=== PATIENT | female | born 1970 | race Hispanic/Latino ===

== ENCOUNTER → 2018-08-08 15:11 | Outpatient (CLI) | payer OTHER, SELFPAY ==
--- NOTE | 2018-08-08 | DI.MRI.S_ITS ---
PROCEDURE: MR ANKLE LT WO CON INDICATIONS: PAIN UNSPECIFIED ANKLE AND JOINTS TECHNIQUE: Noncontrast sagittal T1 spin echo and T2 fast spin echo with fat saturation, axial proton density fast spin echo and T2 fast spin echo with fat saturation, coronal T1 spin echo and T2 fast spin echo with fat saturation through the ankle/hindfoot. COMPARISON: None. FINDINGS: Image quality: Excellent. Bones and joints: No bone marrow contusions or fractures. No hindfoot coalitions. No osteochondral injuries of the talar dome. No pathologic joint effusions. Medial structures: The posterior tibialis, flexor digitorum longus, and flexor hallucis longus tendons are intact. The posterior tibial neurovascular bundle appears normal within the tarsal tunnel, without extrinsic mass effect. The deep layer (anterior and posterior tibiotalar ligaments) and superficial layer (tibionavicular, tibiospring, and tibiocalcaneal ligaments) of the deltoid ligament appear normal. The spring ligament components (superomedial calcaneonavicular, medioplantar oblique calcaneonavicular, and inferoplantar longitudinal ligaments) are intact. Lateral structures: The anterior talofibular, calcaneofibular, and posterior talofibular ligaments appear intact. More superiorly, the anterior and posterior tibiofibular ligaments appear intact, as is the intermalleolar ligament. The tibiofibular syndesmosis is normal in width at 2 mm or less. There is thickening of hernias longus and brevis tendon with moderate amount of fluid distending the tendon sheath suggestive of tenosynovitis. There is suggestion of full-thickness rupture involving distal peroneus brevis tendon at its insertion with proximal retraction of torn tendon fibers to the level of the subtalar joint. Adjacent bony peroneal tubercle and retrotrochlear prominence are normal in size. The sinus tarsi demonstrates normal fatty signal, without edema, fibrosis, or cyst formation. Visualized sinus tarsi components (cervical ligament, interosseous talocalcaneal ligament, roots of the inferior extensor retinaculum) appear normal. The calcaneonavicular and calcaneocuboid components of the bifurcate ligament appear intact. The dorsal calcaneocuboid ligament appears intact. Anterior structures: The tibialis anterior, extensor hallucis longus, and extensor digitorum longus tendons appear intact. The dorsal talonavicular ligament appears intact. Posterior and plantar structures: Achilles tendon is intact. Medial and lateral bands of the plantar fascia are of normal thickness. No abductor digiti quinti muscle atrophy to suggest Abbott neuropathy. IMPRESSION: #1. Tenosynovitis involving the peroneus tendons with suggestion of full-thickness rupture involving distal peroneus brevis tendon at its distal insertion with proximal retraction of torn tendon fibers to the level of subtalar joint. #2. No other ankle tendon or ligament pathology. #3. No marrow edema. No fracture or dislocation. Dictated by: Julian Baumann M.D. on 08/08/2018 at 16:49 Approved by: Julian Baumann M.D. on 08/08/2018 at 17:43
== END ==
PROVIDERS: Visit Provider Family Medicine
DX: M25.572 Pain in left ankle and joints of left foot (principal); M65.862 Other synovitis and tenosynovitis, left lower leg
CPT/HCPCS: 73721

== ENCOUNTER 2022-12-14 10:32 | Emergency (ER) | payer OTHER, SELFPAY ==
[2022-12-14] VITALS (10 sets, daily range): BP systolic 136–188; BP diastolic 78–97; PULSE 57–82; RESP 12–16; TEMP 36.4; O2SAT 95–98; BMI 32.3
[2022-12-14 11:04] LABS: Add Manual Diff / Slide Review NO; Basophils Absolute Auto 100 /uL (0-100); Basophils Percent Auto 0.9 % (0-2); Eosinophils Absolute Auto 600 /uL (0-450); Eosinophils Percent Auto 8.7 % (2-4); Hematocrit 42.1 % (36-46); Hemoglobin 14.2 g/dL (12.0-16.0); Lymphocytes Absolute Auto 2500 /uL (1100-4500); Lymphocytes Percent Auto 34.1 % (25-40); Mean Corpuscular HGB Conc 33.7 % (30-36); Mean Corpuscular Hemoglobin 28.9 PG (26-34); Mean Corpuscular Volume 85.8 fL (80-100); Monocytes Absolute Auto 500 /uL (0-900); Monocytes Percent Auto 6.8 % (3-14); Neutrophils Absolute Auto 3600 /uL (1500-7000); Neutrophils Percent Auto 49.5 % (50-75); Platelet Count 279 X10^3/uL (150-400); Red Cell Distribution Width 13.1 % (11.6-14.8); White Blood Cell Count 7.2 X10^3/uL (4.5-11.0)
[2022-12-14 11:10] LABS: Ictotest Urine Negative (Negative)
[2022-12-14 11:11] LABS: Bacteria Urine Moderate (10-30); RBC Urine 5-10/HPF (0-5/HPF); WBC Urine 0-1/HPF (0-5/HPF)
[2022-12-14 11:12] LABS: Culture Indicated Urine Specimen Cultured; Squamous Epithelial Cell Urine 1-5 /HPF (0-5/HPF)
[2022-12-14 11:16] LABS: Alanine Aminotransferase 36 IU/L (<35); Albumin 4.4 g/dL (3.5-5.0); Albumin Globulin Ratio 1.3 (1.0-2.8); Alkaline Phosphatase 84 U/L (38-126); Aspartate Aminotransferase 32 IU/L (14-36); BUN Creatinine Ratio 10.8 (6-22); Bilirubin Total 0.4 mg/dL (0.2-1.3); Blood Urea Nitrogen 8 mg/dL (7-17); Calcium 9.2 mg/dL (8.4-10.2); Carbon Dioxide 27 mmol/L (22-32); Chloride 102 mmol/L (98-107); Estimated Glomerular Filt Rate > 60 mL/min (>60); Globulin 3.4 g/dL (1.7-4.1); Glucose 151 mg/dL (70-100); HEMOLYSIS < 15 (0-50); Lipase 73 U/L (23-300); Potassium 3.6 mmol/L (3.4-5.1); Sodium 138 mmol/L (137-145); Total Protein 7.8 g/dL (6.3-8.2)
[2022-12-14] MEDS: ONDANSETRON 4 MG/2 ML INJ IV (11:23)
[2022-12-14 11:32] LABS: Appearance Urine UA CLEAR; Bilirubin Urine UA NEGATIVE (NEGATIVE); Color Urine UA YELLOW; Glucose Urine UA NEGATIVE (Negative); Ketones Urine UA TRACE (NEGATIVE); Leukocyte Esterase Urine UA NEGATIVE (NEGATIVE); Nitrite Urine UA NEGATIVE (Negative); Occult Blood Urine UA NEGATIVE (Negative); Protein Urine UA TRACE (Negative); Specific Gravity Urine UA 1.015 (1.000-1.035)
[2022-12-14 11:34] LABS: pH Urine UA 6.5 (4.5-8.0)
--- NOTE | 2022-12-14 11:34 | ED.ABDPAIN ---
HPI - Abdominal Pain General Chief Complaint: Abdominal Pain Stated Complaint: back pain t-4 Time Seen by Provider: 12/14/22 11:21 Source: patient Mode of arrival: Ambulatory History of Present Illness HPI narrative: Patient healthy 52-year-old female presents today with some right-sided back pain and abdominal pain. Feeling nauseated at times. Yesterday she reports that she drank multiple sodas in order to try and burp. No changes in bowel habits. She is been having some chest burning but no real chest pain. No fever or chills. No painful or frequent urination. Not feeling quite right. Related Data Allergies Allergy/AdvReac Type Severity Reaction Status Date / Time No Known Drug Allergies Allergy Verified 12/14/22 10:36 Review of Systems Review of Systems ROS Unobtainable: All systems reviewed & are unremarkable except as noted in HPI and below Patient History Social History Smoking Status: Unknown if ever smoked Smoking Status: Unknown if ever smoked alcohol intake frequency: holidays/special occasions only Substance Use Type: does not use Exam Initial Vital Signs Initial Vital Signs: Vital Signs Temperature 97.5 F L 12/14/22 10:33 Pulse Rate 71 12/14/22 10:33 Respiratory Rate 15 12/14/22 10:33 Blood Pressure 188/91 H 12/14/22 10:33 Pulse Oximetry 98 12/14/22 10:33 Oxygen Delivery Method Room Air 12/14/22 10:33 GENERAL: Alert pleasant well-appearing 52-year-old female and in no acute distress. HEENT: Head atraumatic,EOMI, pupils reactive, face symmetric, moist mucous membranes CARDIOVASCULAR: Regular rate and rhythm without murmurs, rubs or gallops. RESPIRATORY: Breath sounds equal bilaterally, no wheezes rales or rhonchi. ABDOMEN: Soft, nontender. Negative Larios sign Normoactive bowel sounds all 4 quadrants. No guarding or rebound. BACK: Tender right thoracic area reproducible to palpation paraspinal area : No CVA tenderness EXTREMITIES: Normal range of motion, no clubbing or edema. Neurovascularly intact NEUROLOGICAL: Alert and oriented x4.Normal gait and speech. SKIN: Warm, dry, no laceration, no petechiae, no rashes or lesions. Course Orders Ordered: ED Orders 12/14/22 10:41 Ictotest Urine Stat Urine Culture Stat Urine Microscopic Stat 12/14/22 10:50 Complete Blood Count AUTO DIFF Stat Comprehensive Metabolic Panel Stat Lipase Stat Troponin & CK Cardiac Panel Stat 12/14/22 10:54 EKG-12 Lead Stat 12/14/22 11:07 Test Urine Stat Urinalysis and Microscopic Stat 12/14/22 11:47 US abdomen limited Stat Discontinued Medications Ketorolac Tromethamine (Ketorolac 30 Mg/Ml Vial) 15 mg IV NOW ONE Stop: 12/14/22 11:48 Last Admin: 12/14/22 11:58 Dose: 15 mg Documented By: FREDDY Ondansetron HCl (Ondansetron 4 Mg/2 Ml Inj) 4 mg IV NOW PRN PRN Reason: Nausea And Vomiting Last Admin: 12/14/22 11:23 Dose: 4 mg Documented By: FREDDY Vital Signs Vital signs: Vital Signs - 8 hr 12/14/22 11:30 12/14/22 11:32 12/14/22 11:32 Pulse Rate 67 64 Respiratory Rate 12 16 Blood Pressure 153/97 H Pulse Oximetry 98 98 12/14/22 12:00 12/14/22 12:00 12/14/22 12:30 Pulse Rate 65 Respiratory Rate 16 Blood Pressure 143/83 H 150/81 H Pulse Oximetry 98 12/14/22 12:30 12/14/22 13:00 12/14/22 13:30 Pulse Rate 60 57 L Respiratory Rate 14 15 Blood Pressure 136/78 Pulse Oximetry 96 96 12/14/22 13:30 Pulse Rate 58 L Respiratory Rate 14 Blood Pressure Pulse Oximetry 95 MDM - Abdominal Pain Lab Data 12/14/22 10:50 12/14/22 10:50 Labs: Lab Results 12/14/22 12/14/22 12/14/22 Range/Units 10:41 10:50 10:50 WBC 7.2 (4.5-11.0) X10^3/uL RBC 4.90 (4.0-5.2) X10^6/uL Hgb 14.2 (12.0-16.0) g/dL Hct 42.1 (36-46) % MCV 85.8 (80-100) fL MCH 28.9 (26-34) PG MCHC 33.7 (30-36) % RDW 13.1 (11.6-14.8) % Plt Count 279 (150-400) X10^3/uL Neut % (Auto) 49.5 L (50-75) % Lymph % (Auto) 34.1 (25-40) % [place] % (Auto) 6.8 (3-14) % Eos % (Auto) 8.7 H (2-4) % Baso % (Auto) 0.9 (0-2) % Neut # (Auto) 3600 (9531-4313) /uL Lymph # (Auto) 2500 (7271-3716) /uL [place] # (Auto) 500 (0-900) /uL Eos # (Auto) 600 H (0-450) /uL Baso # (Auto) 100 (0-100) /uL Sodium 138 (137-145) mmol/L Potassium 3.6 (3.4-5.1) mmol/L Chloride 102 (98-107) mmol/L Carbon Dioxide 27 (22-32) mmol/L BUN 8 (7-17) mg/dL Creatinine 0.74 (0.52-1.04) mg/dL Estimated GFR > 60 (>60) mL/min BUN/Creatinine Ratio 10.8 (6-22) Glucose 151 H (70-100) mg/dL Calcium 9.2 (8.4-10.2) mg/dL Total Bilirubin 0.4 (0.2-1.3) mg/dL AST 32 (14-36) IU/L ALT 36 H (<35) IU/L Alkaline Phosphatase 84 (38-126) U/L Total Creatine Kinase (30-135) U/L Troponin I (0.01-0.034) ng/mL Total Protein 7.8 (6.3-8.2) g/dL Albumin 4.4 (3.5-5.0) g/dL Globulin 3.4 (1.7-4.1) g/dL Albumin/Globulin Ratio 1.3 (1.0-2.8) Lipase 73 (23-300) U/L Urine Color Urine Appearance Urine pH (4.5-8.0) Ur Specific [place] (1.000-1.035) Urine Protein (Negative) Urine Glucose (UA) (Negative) g/dL Urine Ketones (NEGATIVE) Urine Occult Blood (Negative) Urine Nitrate (Negative) Urine Bilirubin (NEGATIVE) Ur Bilirubin Confirm Negative (Negative) Urine Urobilinogen (0.2) E.U./dL Ur Leukocyte Esterase (NEGATIVE) Urine RBC 5-10/hpf H (0-5/HPF) Urine WBC 0-1/hpf (0-5/HPF) Ur Squamous Epith Cells 1-5 /hpf (0-5/HPF) Urine Bacteria Moderate (10-30) H (None) Ur Culture Indicated? Specimen cultured Micro UA Comment Urine Test (Negative) 12/14/22 12/14/22 12/14/22 Range/Units 10:50 11:07 11:07 WBC (4.5-11.0) X10^3/uL RBC (4.0-5.2) X10^6/uL Hgb (12.0-16.0) g/dL Hct (36-46) % MCV (80-100) fL MCH (26-34) PG MCHC (30-36) % RDW (11.6-14.8) % Plt Count (150-400) X10^3/uL Neut % (Auto) (50-75) % Lymph % (Auto) (25-40) % [place] % (Auto) (3-14) % Eos % (Auto) (2-4) % Baso % (Auto) (0-2) % Neut # (Auto) (2626-0318) /uL Lymph # (Auto) (5969-8167) /uL [place] # (Auto) (0-900) /uL Eos # (Auto) (0-450) /uL Baso # (Auto) (0-100) /uL Sodium (137-145) mmol/L Potassium (3.4-5.1) mmol/L Chloride (98-107) mmol/L Carbon Dioxide (22-32) mmol/L BUN (7-17) mg/dL Creatinine (0.52-1.04) mg/dL Estimated GFR (>60) mL/min BUN/Creatinine Ratio (6-22) Glucose (70-100) mg/dL Calcium (8.4-10.2) mg/dL Total Bilirubin (0.2-1.3) mg/dL AST (14-36) IU/L ALT (<35) IU/L Alkaline Phosphatase (38-126) U/L Total Creatine Kinase 51 (30-135) U/L Troponin I < 0.012 (0.01-0.034) ng/mL Total Protein (6.3-8.2) g/dL Albumin (3.5-5.0) g/dL Globulin (1.7-4.1) g/dL Albumin/Globulin Ratio (1.0-2.8) Lipase (23-300) U/L Urine Color Yellow Urine Appearance Clear Urine pH 6.5 (4.5-8.0) Ur Specific [place] 1.015 (1.000-1.035) Urine Protein Trace H (Negative) Urine Glucose (UA) Negative (Negative) g/dL Urine Ketones Trace H (NEGATIVE) Urine Occult Blood Negative (Negative) Urine Nitrate Negative (Negative) Urine Bilirubin Negative (NEGATIVE) Ur Bilirubin Confirm (Negative) Urine Urobilinogen 1.0 (0.2) E.U./dL Ur Leukocyte Esterase Negative (NEGATIVE) Urine RBC None seen D (0-5/HPF) Urine WBC None seen (0-5/HPF) Ur Squamous Epith Cells None seen (0-5/HPF) Urine Bacteria None seen (None) Ur Culture Indicated? Cult not indicated Micro UA Comment Microscopic normal Urine Test Negative (Negative) Point of care testing: Urine Dip Bedside Urine Glucose Negative Bedside Urine Bilirubin + 1 Bedside Urine Ketone +/- 5 Urine Specific [place] 1.015 Bedside Urine Occult Blood - Negative Bedside Urine pH 6.0 Bedside Urine Protein +/- 15 Bedside Urine Urobilinogen - Negative Bedside Urine Nitrite - Negative Bedside Urine Leukocytes - Negative Esterase Imaging Data US - abdomen: Radiologist's Impression: PROCEDURE: US ABDOMEN LIMITED ? INDICATIONS:? RIGHT UPPER QUADRANT PAIN ? TECHNIQUE:? Real-time focused scanning was performed of the abdomen, with image documentation.? ? COMPARISON:? None. ? FINDINGS:? Diffuse increased echogenicity of the liver is most likely secondary to diffuse hepatic steatosis.? No focal liver masses identified. ? The bladder is contracted.? This results in gallbladder wall prominence, not felt to be significantly thickened.? No stones identified.? No pain on examination. ? No dilated ducts.? Common bile duct measures 3.5 mm. ? Pancreas is not visualized secondary to overlying bowel gas.? ? IMPRESSION:? ? 1. Diffuse hepatic steatosis. ? 2. Otherwise unremarkable right upper quadrant ultrasound. ? ? ECG Data Interpretation: Normal sinus rhythm rate 67 AL interval 90 QRS [address] changes no T-wave inversions MDM Narrative Medical decision making narrative: Patient 52-year-old healthy female presents today with right thoracic pain which is reproducible to palpation. She is having around abdominal pain possibly right upper quadrant pain but really negative Larios sign. Though still concerning for possible gallbladder disease. Bilirubin liver enzymes and lipase are all negative. Ultrasound shows hepatic steatosis. She is having some right thoracic pain cardiac troponin EKG were also done and are negative. Pain is reproducible to palpation and movement I suspect more musculoskeletal. She is feeling better after her Toradol. Other blood work is reassuring. Her abdominal exam is pretty benign I see no need for any further imaging or workup. Discharge Plan Departure Patient Disposition: Home Clinical Impression: Back pain Instructions: DI for Thoracic Back Pain Activity Restrictions/Additional Instructions: *You have been diagnosed with back pain *What to do: At this time no evidence of infection or cause of back pain. Recommend ice he light activity and stretching. *Continue to take medications as directed Motrin 600 mg every 6 hours if needed for lxok-lu-dlhuhzth pain Tylenol 650 mg every 6 hours if needed for ocfh-ro-hetpfiol pain *Follow up with your primary care provider in 2-3 days or call [phone] *Return to ER if you should have increasing pain or any new, worsening or concerning symptoms Stand Alone Forms: Patient Portal/API, Work Release Note
[2022-12-14 11:35] LABS: Pregnancy Test Urine Negative (Negative)
[2022-12-14 11:37] LABS: Bacteria Urine None Seen; Culture Indicated Urine Cult Not Indicated; RBC Urine None Seen (0-5/HPF); Squamous Epithelial Cell Urine None Seen (0-5/HPF); Urine Comments Microscopic Normal; WBC Urine None Seen (0-5/HPF)
--- NOTE | 2022-12-14 11:47 | DI.US.S_ITS ---
PROCEDURE: US ABDOMEN LIMITED INDICATIONS: RIGHT UPPER QUADRANT PAIN TECHNIQUE: Real-time focused scanning was performed of the abdomen, with image documentation. COMPARISON: None. FINDINGS: Diffuse increased echogenicity of the liver is most likely secondary to diffuse hepatic steatosis. No focal liver masses identified. The bladder is contracted. This results in gallbladder wall prominence, not felt to be significantly thickened. No stones identified. No pain on examination. No dilated ducts. Common bile duct measures 3.5 mm. Pancreas is not visualized secondary to overlying bowel gas. IMPRESSION: 1. Diffuse hepatic steatosis. 2. Otherwise unremarkable right upper quadrant ultrasound. Dictated by: Srinath Pinto M.D. on 12/14/2022 at 12:41 Approved by: Srinath Pinto M.D. on 12/14/2022 at 12:42
[2022-12-14] MEDS: KETOROLAC 30 MG/ML VIAL 15 MG IV (11:58)
[2022-12-14 12:06] LABS: Creatine Kinase 51 U/L (30-135)
[2022-12-14 12:19] LABS: Troponin I < 0.012 ng/mL (0.01-0.034)
== END 2022-12-14 13:53 | disposition home or self-care (01) ==
PROVIDERS: Emergency Provider Emergency Medicine
DX: M54.6 Pain in thoracic spine (principal); R07.9 Chest pain, unspecified; R10.11 Right upper quadrant pain
CPT/HCPCS: 36415; 76705; 80053; 81001; 81003; 81015; 81025; 82550; 83690; 84484; 85025; 87086; 87147; 93005; 96374; 96375; 99284; J1885; J2405

== ENCOUNTER 2023-10-24 19:00 | Emergency (ER) | payer OTHER, SELFPAY ==
[2023-10-24 19:10] VITALS: BP 142/90; PULSE 87; RESP 18; TEMP 36.6; O2SAT 98; BMI 33.4
[2023-10-24 20:26] VITALS: BP 157/79; PULSE 79; O2SAT 98
[2023-10-24 20:30] VITALS: BP 152/79; PULSE 83; O2SAT 97
[2023-10-24] MEDS: ONDANSETRON 4 MG/2 ML INJ IV (20:40)
[2023-10-24 20:45] LABS: Add Manual Diff / Slide Review NO; Basophils Absolute Auto 0 /uL (0-100); Basophils Percent Auto 0.1 % (0-2); Eosinophils Absolute Auto 0 /uL (0-450); Eosinophils Percent Auto 0.1 % (2-4); Hematocrit 43.8 % (36-46); Hemoglobin 14.6 g/dL (12.0-16.0); Lymphocytes Absolute Auto 800 /uL (1100-4500); Lymphocytes Percent Auto 8.4 % (25-40); Mean Corpuscular HGB Conc 33.3 % (30-36); Mean Corpuscular Hemoglobin 28.7 PG (26-34); Mean Corpuscular Volume 86.2 fL (80-100); Monocytes Absolute Auto 500 /uL (0-900); Monocytes Percent Auto 5.4 % (3-14); Neutrophils Absolute Auto 7800 /uL (1500-7000); Platelet Count 282 X10^3/uL (150-400); Red Blood Cell Count 5.09 X10^6/uL (4.0-5.2); Red Cell Distribution Width 13.5 % (11.6-14.8); White Blood Cell Count 9.1 X10^3/uL (4.5-11.0)
--- NOTE | 2023-10-24 20:45 | ED.NAVMDI ---
HPI - Nausea/Vomiting/Diarrhea General Chief complaint: Nausea/Vomiting/Diarrhea Stated complaint: diarrhea and vomiting Time Seen by Provider: 10/24/23 20:30 Source: patient Mode of arrival: Ambulatory History of Present Illness HPI Narrative: 53-year-old female with no reported past medical history presents for ?innumerable episodes of nonbloody vomiting and diarrhea since this afternoon. States that she ate half of a burger with her son earlier today, but her son is not sick with similar symptoms. Reports generalized abdominal cramping. Related Data Previous Rx's Medication Instructions Recorded ondansetron 4 mg disintegrating 4 mg PO Q8H PRN nausea and 10/24/23 tablet vomiting #30 tabs Allergies Allergy/AdvReac Type Severity Reaction Status Date / Time No Known Drug Allergies Allergy Verified 10/24/23 19:12 Patient History Social History Smoking Status: Unknown if ever smoked Smoking Status: Unknown if ever smoked alcohol intake frequency: holidays/special occasions only Substance Use Type: does not use Exam Initial Vital Signs Initial Vital Signs: Vital Signs Temperature 97.8 F 10/24/23 19:10 Pulse Rate 87 10/24/23 19:10 Respiratory Rate 18 10/24/23 19:10 Blood Pressure 142/90 H 10/24/23 19:10 Pulse Oximetry 98 10/24/23 19:10 Oxygen Delivery Method Room Air 10/24/23 19:10 Const: Awake, alert, no acute distress, nontoxic appearing Cardiac: regular rate, regular rhythm RESP: unlabored, clear bilaterally, no wheezing GI: Soft, generalized tenderness to deep palpation without rebound or guarding Skin: Warm, Dry, intact, no rashes Neuro: AO x3, CN II-XII grossly intact, moves all extremities Course Orders Ordered: ED Orders 10/24/23 20:35 Complete Blood Count AUTO DIFF Stat Comprehensive Metabolic Panel Stat Lipase Stat Discontinued Medications Sodium Chloride (Normal Saline 0.9%) 1,000 mls @ 1,000 mls/hr IV BOLUS ONE Stop: 10/24/23 21:44 Last Infusion: 10/24/23 22:24 Dose: Infused Documented By: Admin: 10/24/23 21:06 Dose: 1,000 mls/hr Documented By: TEA Ketorolac Tromethamine (Ketorolac 30 Mg/Ml Vial) 15 mg IV NOW ONE Stop: 10/24/23 20:46 Last Admin: 10/24/23 21:06 Dose: 15 mg Documented By: TEA Ondansetron HCl (Ondansetron 4 Mg/2 Ml Inj) 4 mg IV NOW PRN PRN Reason: Nausea And Vomiting Last Admin: 10/24/23 20:40 Dose: 4 mg Documented By: TEA Ondansetron HCl (Ondansetron 4 Mg Odt) 4 mg PO NOW PRN PRN Reason: Nausea And Vomiting Ondansetron HCl (Ondansetron 4 Mg Odt Prepack) 1 bottle MISC DIRECTED ONE Stop: 10/24/23 22:12 Last Admin: 10/24/23 22:23 Dose: 1 bottle Documented By: TEA Vital Signs Vital signs: Vital Signs - 8 hr 10/24/23 19:10 10/24/23 20:26 10/24/23 20:26 Temperature 97.8 F Pulse Rate 87 79 Respiratory Rate 18 Blood Pressure 142/90 H 157/79 H Pulse Oximetry 98 98 Oxygen Delivery Method Room Air 10/24/23 20:30 10/24/23 20:30 10/24/23 21:00 Temperature Pulse Rate 83 72 Respiratory Rate Blood Pressure 152/79 H Pulse Oximetry 97 93 Oxygen Delivery Method 10/24/23 21:00 10/24/23 21:30 10/24/23 21:30 Temperature Pulse Rate 66 Respiratory Rate Blood Pressure 131/72 133/76 Pulse Oximetry 96 Oxygen Delivery Method 10/24/23 22:00 10/24/23 22:00 Temperature Pulse Rate 65 Respiratory Rate Blood Pressure 121/67 Pulse Oximetry 96 Oxygen Delivery Method MDM - Nausea/Vomiting/Diarrhea Differential Diagnosis Differential diagnosis: Likely traveler's diarrhea, food poisoning and gastroenteritis Lab Data 10/24/23 20:35 10/24/23 20:35 Labs: Lab Results 10/24/23 Range/Units 20:35 WBC 9.1 (4.5-11.0) X10^3/uL RBC 5.09 (4.0-5.2) X10^6/uL Hgb 14.6 (12.0-16.0) g/dL Hct 43.8 (36-46) % MCV 86.2 (80-100) fL MCH 28.7 (26-34) PG MCHC 33.3 (30-36) % RDW 13.5 (11.6-14.8) % Plt Count 282 (150-400) X10^3/uL Neut % (Auto) 86.0 H (50-75) % Lymph % (Auto) 8.4 L (25-40) % [place] % (Auto) 5.4 (3-14) % Eos % (Auto) 0.1 L (2-4) % Baso % (Auto) 0.1 (0-2) % Neut # (Auto) 7800 H (5732-0973) /uL Lymph # (Auto) 800 L (2588-6042) /uL [place] # (Auto) 500 (0-900) /uL Eos # (Auto) 0 (0-450) /uL Baso # (Auto) 0 (0-100) /uL Sodium 135 L (137-145) mmol/L Potassium 3.6 (3.4-5.1) mmol/L Chloride 106 (98-107) mmol/L Carbon Dioxide 21 L (22-32) mmol/L BUN 11 (7-17) mg/dL Creatinine 0.68 (0.52-1.04) mg/dL Estimated GFR > 60 (>60) mL/min BUN/Creatinine Ratio 16.2 (6-22) Glucose 126 H (70-100) mg/dL Calcium 8.3 L (8.4-10.2) mg/dL Total Bilirubin 0.7 (0.2-1.3) mg/dL AST 26 (14-36) IU/L ALT 26 (<35) IU/L Alkaline Phosphatase 88 (38-126) U/L Total Protein 8.1 (6.3-8.2) g/dL Albumin 4.5 (3.5-5.0) g/dL Globulin 3.6 (1.7-4.1) g/dL Albumin/Globulin Ratio 1.3 (1.0-2.8) Lipase 47 (23-300) U/L MDM Narrative Medical decision making narrative: Several hours of vomiting and diarrhea. Likely viral versus food-borne illness. Abdomen soft, no focal tenderness or distention to suggest need for advanced imaging at this time. Laboratory work shows normal electrolytes, no leukocytosis. Patient received IV fluids, nausea medications, pain medications with resolution of symptoms. She was able to tolerate p.o. fluids in the emergency department. Patient sent home with antiemetics. Brat diet counseled. Note for work provided. Discharge Plan Departure Patient Disposition: Home Clinical Impression: Vomiting and diarrhea Instructions: DI for Vomiting -- Adult Activity Restrictions/Additional Instructions: Your laboratory work today is reassuring. You has been given nausea medications and a L of IV fluids. Nausea medications has been sent to the [facility] in [place]. Follow a light diet for the next several days. Prescriptions: New ondansetron 4 mg tablet,disintegrating 4 mg PO Q8H PRN (Reason: nausea and vomiting) Qty: 30 0RF Referrals: ProviderGayatri [Primary Care Provider] - Stand Alone Forms: Patient Portal/API, Work Release Note
[2023-10-24 20:52] LABS: Alanine Aminotransferase 26 IU/L (<35); Albumin 4.5 g/dL (3.5-5.0); Albumin Globulin Ratio 1.3 (1.0-2.8); Alkaline Phosphatase 88 U/L (38-126); Aspartate Aminotransferase 26 IU/L (14-36); BUN Creatinine Ratio 16.2 (6-22); Bilirubin Total 0.7 mg/dL (0.2-1.3); Blood Urea Nitrogen 11 mg/dL (7-17); Calcium 8.3 mg/dL (8.4-10.2); Carbon Dioxide 21 mmol/L (22-32); Chloride 106 mmol/L (98-107); Estimated Glomerular Filt Rate > 60 mL/min (>60); Globulin 3.6 g/dL (1.7-4.1); Glucose 126 mg/dL (70-100); HEMOLYSIS < 15 (0-50); Lipase 47 U/L (23-300); Potassium 3.6 mmol/L (3.4-5.1); Sodium 135 mmol/L (137-145); Total Protein 8.1 g/dL (6.3-8.2)
[2023-10-24 21:00] VITALS: BP 131/72; PULSE 72; O2SAT 93
[2023-10-24] MEDS: KETOROLAC 30 MG/ML VIAL 15 MG IV (21:06)
[2023-10-24] MEDS: SODIUM CHLORIDE 0.9% 1,000 ML 1000 ML IV (21:06)
[2023-10-24 21:30] VITALS: BP 133/76; PULSE 66; O2SAT 96
[2023-10-24 22:00] VITALS: BP 121/67; PULSE 65; O2SAT 96
[2023-10-24] MEDS: ONDANSETRON 4 MG ODT PREPACK 1 BOTTLE MISC (22:23)
== END 2023-10-24 22:31 | disposition home or self-care (01) ==
PROVIDERS: Emergency Provider Emergency Medicine
DX: R11.10 Vomiting, unspecified (principal); R19.7 Diarrhea, unspecified
CPT/HCPCS: 36415; 80053; 83690; 85025; 96374; 96375; 99284; J1885; J2405

== ENCOUNTER 2024-11-03 16:42 | Emergency (ER) | payer OTHER, SELFPAY ==
[2024-11-03] VITALS (19 sets, daily range): BP systolic 135–171; BP diastolic 68–92; PULSE 79–91; RESP 13–23; TEMP 37.2; O2SAT 93–97; BMI 33.0
--- NOTE | 2024-11-03 17:03 | EKG_ITS ---
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
--- NOTE | 2024-11-03 17:03 | DI.RAD.S_ITS ---
PROCEDURE: XR CHEST 1V INDICATIONS: chest pain TECHNIQUE: One view of the chest was acquired. COMPARISON: None. FINDINGS: Surgical changes and devices: None. Lungs and pleura: Lungs are clear. No pleural effusions or pneumothorax. Mediastinum: Mediastinal contours appear normal. Heart size is normal. Bones and chest wall: No suspicious bony lesions. Overlying soft tissues appear unremarkable. IMPRESSION: No acute cardiopulmonary pathology. Dictated by: Julian Baumann M.D. on 11/03/2024 at 17:50 Approved by: Julian Baumann M.D. on 11/03/2024 at 17:51
[2024-11-03 17:26] LABS: Add Manual Diff / Slide Review NO; Hematocrit 42.1 % (36-46); Hemoglobin 14.1 g/dL (12.0-16.0); Lymphocytes Absolute Auto 1300 /uL (1100-4500); Mean Corpuscular HGB Conc 33.6 % (30-36); Mean Corpuscular Hemoglobin 28.9 PG (26-34); Mean Corpuscular Volume 86.1 fL (80-100); Platelet Count 249 X10^3/uL (150-400)
[2024-11-03 17:38] LABS: Albumin 4.5 g/dL (3.5-5.0); Calcium 9.1 mg/dL (8.4-10.2); Chloride 103 mmol/L (98-107); Glucose 111 mg/dL (70-99); HEMOLYSIS < 15 (0-50); Lipase 82 U/L (23-300); Potassium 3.9 mmol/L (3.4-5.1); Sodium 135 mmol/L (137-145)
[2024-11-03 17:40] LABS: Alanine Aminotransferase 40 IU/L (<35); Albumin Globulin Ratio 1.4 (1.0-2.8); Alkaline Phosphatase 88 U/L (38-126); Blood Urea Nitrogen 5 mg/dL (7-17); Carbon Dioxide 25 mmol/L (22-32); Creatine Kinase 41 U/L (30-135); Estimated Glomerular Filt Rate > 60 mL/min (>60); Globulin 3.3 g/dL (1.7-4.1); Total Protein 7.8 g/dL (6.3-8.2)
[2024-11-03 17:50] LABS: Troponin I < 0.012 ng/mL (0.01-0.034)
[2024-11-03] MEDS: ASPIRIN 81 MG CHEW TAB 324 MG PO (18:21)
--- NOTE | 2024-11-03 18:31 | PC.NURSE ---
Patient reports substernal and epigastric pain since yesterday that feels like I have to burp but am unable to do so that began when she woke up in the morning. Pain radiates to her LEFT neck and back.
[2024-11-03] MEDS: MAG HYDROX/ALUM/SIMETH 30 ML UDC PO (20:00)
--- NOTE | 2024-11-03 21:25 | ED_ITS ---
HPI - Chest Pain General Chief Complaint: Chest Pain Stated Complaint: SOB, indigestion, Lt neck/back pain Time Seen by Provider: 11/03/24 19:11 Mode of arrival: Ambulatory History of Present Illness HPI narrative: 54-year-old female with no known history of CAD, has 2 days duration substernal in anterior midline chest discomfort, with some nausea no vomiting, burping sensation. No history of known PONCE, not regularly using any antacids. No associated diaphoresis. No cough, fevers or chills. No known peptic ulcer disease or gallbladder disease. No previous cardiac testing recalled. Has cardiac risk factor of hypertension and family history, but is nonsmoker, no diabetes, no hyperlipidemia. No injury trauma new activities. No recent antacid use. No fevers or chills. Related Data Previous Rx's ?Medication ?Instructions ?Recorded ondansetron 4 mg disintegrating 4 mg PO Q8H PRN nausea and 10/24/23 tablet vomiting #30 tabs Allergies Allergy/AdvReac Type Severity Reaction Status Date / Time No Known Drug Allergies Allergy Verified 11/03/24 16:59 Patient History Social History Smoking Status: Never smoker Smoking Status: Never smoker alcohol intake frequency: holidays/special occasions only Exam Narrative Exam Narrative: GENERAL: Well-developed patient, in mild distress. HEAD: Atraumatic. Normocephalic. EYES: Pupils equal round and reactive. Extraocular motions intact. No scleral icterus. No injection or drainage. ENT: Nose without bleeding, purulent drainage. Throat without erythema, tonsillar hypertrophy or exudate. Airway patent. NECK: Trachea midline. Non tender CARDIOVASCULAR: Regular rate and rhythm without murmurs, gallops, or rubs. RESPIRATORY: Clear to auscultation. Breath sounds equal bilaterally. No wheezes, rales, or rhonchi. GASTROINTESTINAL: Abdomen soft, non-tender, nondistended. EXTREMITIES: No edema or joint tenderness. BACK: Nontender without deformity or crepitance. No flank tenderness. NEURO: AOx3. Motor functions grossly nonfocal. SKIN: No rash or erythema of visible areas Initial Vital Signs Initial Vital Signs: Vital Signs Temperature 98.9 F 11/03/24 16:59 Pulse Rate 91 H 11/03/24 16:59 Respiratory Rate 16 11/03/24 16:59 Blood Pressure 171/92 H 11/03/24 16:59 Pulse Oximetry 97 11/03/24 16:59 Oxygen Delivery Method Room Air 11/03/24 16:59 Course Orders Ordered: ED Orders 11/03/24 17:03 XR chest 1V Stat EKG-12 Lead Stat 11/03/24 17:16 Complete Blood Count AUTO DIFF Stat Comprehensive Metabolic Panel Stat Lipase Stat Troponin & CK Cardiac Panel Stat 11/03/24 21:24 Troponin I Stat Discontinued Medications Al Hydrox/Mg Hydrox/Simethicone (Mag Hydrox/Alum/Simeth 30 Ml Udc) 30 ml PO NOW ONE Stop: 11/03/24 19:20 Last Admin: 11/03/24 20:00 Dose: 30 ml Documented By: RLC Aspirin (Aspirin 81 Mg Chew Tab) 324 mg PO NOW ONE Stop: 11/03/24 17:04 Last Admin: 11/03/24 18:21 Dose: 324 mg Documented By: SB Vital Signs Vital signs: Vital Signs - 8 hr 11/03/24 18:00 11/03/24 18:00 11/03/24 18:15 Pulse Rate 82 Respiratory Rate 14 Blood Pressure 144/77 H 143/77 H Pulse Oximetry 96 Oxygen Delivery Method 11/03/24 18:15 11/03/24 18:30 11/03/24 18:30 Pulse Rate 84 84 Respiratory Rate 18 17 Blood Pressure 142/81 H Pulse Oximetry 97 95 Oxygen Delivery Method 11/03/24 18:45 11/03/24 18:45 11/03/24 19:00 Pulse Rate 80 Respiratory Rate 14 Blood Pressure 149/81 H 139/76 Pulse Oximetry 95 Oxygen Delivery Method 11/03/24 19:00 11/03/24 19:15 11/03/24 19:15 Pulse Rate 80 83 Respiratory Rate 17 14 Blood Pressure 138/68 Pulse Oximetry 94 95 Oxygen Delivery Method 11/03/24 19:30 11/03/24 19:30 11/03/24 19:45 Pulse Rate 79 Respiratory Rate 20 Blood Pressure 139/75 142/77 H Pulse Oximetry 94 Oxygen Delivery Method 11/03/24 19:45 11/03/24 20:00 11/03/24 20:00 Pulse Rate 80 84 Respiratory Rate 18 16 Blood Pressure 145/70 H Pulse Oximetry 94 95 Oxygen Delivery Method Room Air 11/03/24 20:10 07/06/25 20:10 11/03/24 20:30 Pulse Rate 82 Respiratory Rate 15 Blood Pressure 147/75 H 141/84 H Pulse Oximetry 94 Oxygen Delivery Method 11/03/24 20:30 11/03/24 21:00 11/03/24 21:00 Pulse Rate 81 80 Respiratory Rate 13 19 Blood Pressure 135/70 Pulse Oximetry 96 93 Oxygen Delivery Method 11/03/24 21:30 11/03/24 22:28 Pulse Rate 79 80 Respiratory Rate 23 17 Blood Pressure 148/86 H Pulse Oximetry 94 95 Oxygen Delivery Method Room Air Room Air MDM - Chest Pain Lab Data Attestation: I reviewed the patient's lab results. Lab results narrative: White blood cell count 7600, hemoglobin 14, platelets adequate. Glucose 110. Normal renal function. Serum CO2 25 normal. Electrolytes show slight low sodium 135 with normal potassium 3.9. Slight elevation ALT, with normal AST and T bili and alkaline phosphatase. Troponin negative/unmeasurable x2 interval sets. 11/03/24 17:16 11/03/24 17:16 Labs: Lab Results 11/03/24 11/03/24 Range/Units 17:16 21:24 WBC 7.6 (4.5-11.0) X10^3/uL RBC 4.88 (4.0-5.2) X10^6/uL Hgb 14.1 (12.0-16.0) g/dL Hct 42.1 (36-46) % MCV 86.1 (80-100) fL MCH 28.9 (26-34) PG MCHC 33.6 (30-36) % RDW 13.1 (11.6-14.8) % Plt Count 249 (150-400) X10^3/uL Neut % (Auto) 66.2 (50-75) % Lymph % (Auto) 17.1 L (25-40) % [place] % (Auto) 10.5 (3-14) % Eos % (Auto) 5.6 H (2-4) % Baso % (Auto) 0.6 (0-2) % Neut # (Auto) 5000 (9712-5599) /uL Lymph # (Auto) 1300 (2902-0252) /uL [place] # (Auto) 800 (0-900) /uL Eos # (Auto) 400 (0-450) /uL Baso # (Auto) 0 (0-100) /uL Sodium 135 L (137-145) mmol/L Potassium 3.9 (3.4-5.1) mmol/L Chloride 103 (98-107) mmol/L Carbon Dioxide 25 (22-32) mmol/L BUN 5 L (7-17) mg/dL Creatinine 0.67 (0.52-1.04) mg/dL Estimated GFR > 60 (>60) mL/min BUN/Creatinine Ratio 7.5 (6-22) Glucose 111 H (70-99) mg/dL Calcium 9.1 (8.4-10.2) mg/dL Total Bilirubin 0.4 (0.2-1.3) mg/dL AST 34 (14-36) IU/L ALT 40 H (<35) IU/L Alkaline Phosphatase 88 (38-126) U/L Total Creatine Kinase 41 (30-135) U/L Troponin I < 0.012 < 0.012 (0.01-0.034) ng/mL Total Protein 7.8 (6.3-8.2) g/dL Albumin 4.5 (3.5-5.0) g/dL Globulin 3.3 (1.7-4.1) g/dL Albumin/Globulin Ratio 1.4 (1.0-2.8) Lipase 82 (23-300) U/L Imaging Data Chest x-ray: Radiologist's Impression: [place] [address] XRay Report Signed Patient: Ida Rivera MR#: [id number] : 1970 Acct:[id number] Age/Sex: 54 / F Date of Service: 11/03/24 Loc: ED Accession Number: [id number] Procedure: XR chest 1V Ordering Provider: Meaghan Wallis MD PROCEDURE: XR CHEST 1V INDICATIONS: chest pain TECHNIQUE: One view of the chest was acquired. COMPARISON: None. FINDINGS: Surgical changes and devices: None. Lungs and pleura: Lungs are clear. No pleural effusions or pneumothorax. Mediastinum: Mediastinal contours appear normal. Heart size is normal. Bones and chest wall: No suspicious bony lesions. Overlying soft tissues appear unremarkable. IMPRESSION: No acute cardiopulmonary pathology. Dictated by: Julian Baumann M.D. on 11/03/2024 at 17:50 Approved by: Julian Baumann M.D. on 11/03/2024 at 17:51 ECG Data Attestation: I personally reviewed and interpreted this ECG as follows: Interpretation: 1712, normal sinus rhythm with rate of 90, no obvious ST segment elevation or depression changes. [place] 120, QRS 76, QTC 428. MDM Narrative Medical decision making narrative: 54-year-old female with chest discomfort and burping sensation. Afebrile, sirs screen negative. EKG, chest x-ray labs pending. DDX consider PONCE, ACS, pneumonia, other. EKG without obvious ischemic changes. Chest x-ray no acute changes. See radiology report. Lab data: White blood cell count 7600, hemoglobin 14, platelets adequate. Glucose 110. Normal renal function. Serum CO2 25 normal. Electrolytes show slight low sodium 135 with normal potassium 3.9. Slight elevation ALT, with normal AST and T bili and alkaline phosphatase. Troponin negative/unmeasurable x2 interval sets Maalox given, symptoms improved. Trial of omeprazole [id number] advised. Further evaluation workup as an outpatient for now. Discharged home. Return precautions discussed. Discharge Plan Departure Patient Disposition: Home Clinical Impression: Chest pain Activity Restrictions/Additional Instructions: Upper abdominal epigastric and lower chest area discomfort, with some episodic shortness of breath. No known coronary artery disease. EKG and serial blood tests not suggestive of heart attack at this time. You had some burping component, suspicious for acid related symptoms of the upper abdomen. Maalox antacid was partially helpful. Other blood screening tests unremarkable. Chest x-ray unremarkable. Consider trial of [id number] omeprazole antacid. Consider use of baby aspirin antiplatelet medication orally once daily. Further workup as an outpatient for now. Contact information provided for local surveyor instrument assistant office Dr. Stringer who was on-call, though you might need a referral from your primary care provider. Or your primary care provider might prefer to work with a different cardiologists. Further workup as an outpatient for now. Return to this/nearest emergency department for any change worsening symptoms or any concerns prior. Prescriptions: No Action ondansetron 4 mg tablet,disintegrating 4 mg PO Q8H PRN (Reason: nausea and vomiting) Qty: 30 0RF Referrals: ProviderGayatri [Primary Care Provider, Family Practice] Stand Alone Forms: Patient Portal/API
[2024-11-03 21:59] LABS: Troponin I < 0.012 ng/mL (0.01-0.034)
== END 2024-11-03 22:28 | disposition home or self-care (01) ==
PROVIDERS: Emergency Medicine; Emergency Provider Emergency Medicine
DX: R07.9 Chest pain, unspecified (principal)
CPT/HCPCS: 36415; 71045; 80053; 82550; 83690; 84484; 85025; 93005; 93010; 99284

== ENCOUNTER 2025-02-12 13:55 | Emergency (ER) | payer OTHER, SELFPAY ==
[2025-02-12 14:01] VITALS: BP 144/88; PULSE 76; RESP 18; TEMP 37.1; O2SAT 98; BMI 33.2
--- NOTE | 2025-02-12 14:21 | ED.URI ---
HPI - URI/Sore Throat <Letha Hernandez PA-C - Last Filed: 02/12/25 16:23> General Chief Complaint: Upper Respiratory Symptoms Stated Complaint: Losing her voice, coughing up blood Time Seen by Provider: 02/12/25 13:57 Source: patient Mode of arrival: Ambulatory History of Present Illness HPI Narrative: Ms. Rivera is a pleasant 54-year-old female with a past medical history of HTN who presents to the emergency department for hoarse voice x1 day and productive cough with green/blood tinged sputum x5 days. Patient states that on January 09 she got her flu vaccine and actually the next day she had respiratory symptoms, and has continued to feel fatigue since then. About one week ago she started coughing up green mucus and having a runny nose. On Monday she started noticing some streaks of blood in her green sputum. Today she woke up with a extremely hoarse voice, she did notice pain is talking at work yesterday. This morning she blew her nose and had blood in it, she also coughed up sputum that had more blood/clots in it. States that besides feeling tired and having a hoarse voice, she actually feels quite well and does not feel very sick. No fevers, chills, vomiting, diarrhea, abdominal pain, chest pain, headache. No blood thinner use, hormone use. She does not smoke or use chewing tobacco. Related Data Previous Rx's ?Medication ?Instructions ?Recorded ondansetron 4 mg disintegrating 4 mg PO Q8H PRN nausea and 10/24/23 tablet vomiting #30 tabs sodium,potassium,mag sulfates 17.5 See Rx Instructions PO .COMPLEX 02/10/25 gram-3.13 gram-1.6 gram oral soln #354 mL (Suprep Bowel Prep Kit) amoxicillin 875 mg-potassium 1 tab PO Q12H 5 days #10 tabs 02/12/25 clavulanate 125 mg tablet fluconazole 150 mg tablet 150 mg PO Q3D 2 doses #2 tabs 02/12/25 Allergies Allergy/AdvReac Type Severity Reaction Status Date / Time No Known Drug Allergies Allergy Verified 11/03/24 16:59 Review of Systems <NICOLA Johnson Last Filed: 02/12/25 16:23> Review of Systems ROS Unobtainable: All systems reviewed & are unremarkable except as noted in HPI and below Patient History <Letha Hernandez PA-C - Last Filed: 02/12/25 16:23> alcohol intake frequency: holidays/special occasions only Exam <Letha Hernandez PA-C - Last Filed: 02/12/25 16:23> Narrative Exam Narrative: GENERAL: 54 year old patient appears stated age. Well-developed patient, in no acute distress. HEAD: Atraumatic. Normocephalic. EYES: PERRL. Extraocular motions intact. No scleral icterus. No injection or drainage. ENT: Clear ear canals with pearly melendez TMs bilaterally. Voice is audibly hoarse. No epistaxis. Throat without erythema, tonsillar hypertrophy or exudate. Uvula midline. Airway patent. NECK: Trachea midline. Cervical ROM intact. No stridor. CARDIOVASCULAR: Regular rate and rhythm. RESPIRATORY: ?Nonlabored respirations. ?Speaking in clear, full sentences. ?Clear to auscultation. Breath sounds equal bilaterally. No wheezes, rales, or rhonchi. ? GASTROINTESTINAL: Abdomen soft, non-tender, nondistended. EXTREMITIES: No LE edema or tenderness. NEURO: AOx3. ?Clear speech. ?Moves all 4 extremities appropriately. SKIN: No rash or erythema of visible areas Initial Vital Signs Initial Vital Signs: Vital Signs Temperature 98.7 F 02/12/25 14:01 Pulse Rate 76 02/12/25 14:01 Respiratory Rate 18 02/12/25 14:01 Blood Pressure 144/88 H 02/12/25 14:01 Pulse Oximetry 98 02/12/25 14:01 Oxygen Delivery Method Room Air 02/12/25 14:01 <Amina Gilliland DO - Last Filed: 02/14/25 08:14> Initial Vital Signs Initial Vital Signs: Vital Signs Temperature 98.7 F 02/12/25 14:01 Pulse Rate 76 02/12/25 14:01 Respiratory Rate 18 02/12/25 14:01 Blood Pressure 144/88 H 02/12/25 14:01 Pulse Oximetry 98 02/12/25 14:01 Oxygen Delivery Method Room Air 02/12/25 14:01 Course <Letha Hernandez PA-C - Last Filed: 02/12/25 16:23> Orders Ordered: ED Orders 02/12/25 14:35 XR chest 2V Stat 02/12/25 14:50 Covid-19 + FLU A/B + RSV - PCR Stat Vital Signs Vital signs: Vital Signs - 8 hr 02/12/25 14:01 Temperature 98.7 F Pulse Rate 76 Respiratory Rate 18 Blood Pressure 144/88 H Pulse Oximetry 98 Oxygen Delivery Method Room Air <Amina Gilliland DO - Last Filed: 02/14/25 08:14> Orders Ordered: ED Orders 02/12/25 14:35 XR chest 2V Stat 02/12/25 14:50 Covid-19 + FLU A/B + RSV - PCR Stat Vital Signs Vital signs: Vital Signs - 8 hr 02/12/25 14:01 Temperature 98.7 F Pulse Rate 76 Respiratory Rate 18 Blood Pressure 144/88 H Pulse Oximetry 98 Oxygen Delivery Method Room Air MDM - URI/Sore Throat <Letha Hernandez PA-C - Last Filed: 02/12/25 16:23> Medical Records Attestation: I reviewed the patient's medical records. Lab Data Labs: Lab Results 02/12/25 Range/Units 14:50 SARS-CoV-2 (PCR) Negative (Negative) Influenza A (RT-PCR) Flu a negative (NEGATIVE) Influenza B (RT-PCR) Flu b negative (NEGATIVE) RSV (PCR) Negative (Negative) Imaging Data Chest x-ray: Radiologist's Impression: PROCEDURE: XR CHEST 2V INDICATIONS: persistent productive cough TECHNIQUE: 2 views of the chest were acquired. COMPARISON: [facility], XR CHEST 1V, 11/03/2024, 17:18. FINDINGS: Surgical changes and devices: Mammoplasty implants are incidentally noted. Lungs and pleura: Lungs are clear. No pleural effusions or pneumothorax. Mediastinum: Mediastinal contours are normal. Heart size is normal. Bones and chest wall: No suspicious bony abnormalities. Soft tissues appear unremarkable. IMPRESSION: Clear lungs, without infiltrates. Dictated by: Steven Fink M.D. on 02/12/2025 at 13:44 Approved by: Steven Fink M.D. on 02/12/2025 at 13:45 [facility] Narrative Medical decision making narrative: 54-year-old female with a past medical history of HTN who presents to the emergency department for hoarse voice x1 day and productive cough with green/blood tinged sputum x5 days. Differential diagnosis includes but is not limited to viral URI, laryngitis, bronchitis, pneumonia, sinusitis, etc. On exam the patient is in no acute distress, nontoxic appearing, vital signs appropriate. She has a hoarse voice with no difficulty breathing, no stridor, wheezing. Oropharynx is widely patent and uvula is midline. No sore throat. She has having a productive cough and had blood-streaked nasal drainage and sputum at home, she was able to show me pictures. No chest pain, shortness of breath, tachycardia, hypoxia, hormone use, lower extremity swelling or tenderness. We will obtain viral swab and chest x-ray, we will treat with warm tea with honey for the throat at this time. Suspicion for laryngitis, possible bacterial sinusitis given duration of symptoms in addition to bronchitis versus pneumonia. Viral swab is negative for COVID, flu a, flu B, RSV. Chest x-ray reveals clear lungs, without infiltrates. Given patient's history and physical exam, will treat with Augmentin b.i.d. x5 days for suspected bacterial sinusitis given the duration of her congestion (>7-10 days), however I do also suspect a likely viral bronchitis/laryngitis aspect to her illness as well. For this I recommended increase hydration, warm fluids with honey, coding nares with Vaseline or Aquaphor, PCP follow up. We did discuss strict ER return precautions. Patient verbalized understanding of all information agreeable to plan, she is stable for discharge home and was provided with a work note. <Amina Gilliland, - Last Filed: 02/14/25 08:14> Lab Data Labs: Lab Results 02/12/25 Range/Units 14:50 SARS-CoV-2 (PCR) Negative (Negative) Influenza A (RT-PCR) Flu a negative (NEGATIVE) Influenza B (RT-PCR) Flu b negative (NEGATIVE) RSV (PCR) Negative (Negative) Discharge Plan Departure Patient Disposition: Home Clinical Impression: Laryngitis, Bronchitis Sinusitis Qualifiers: Sinusitis location: unspecified location Chronicity: acute Recurrence: non-recurrent Qualified Code(s): J01.90 - Acute sinusitis, unspecified Instructions: DI for Sinusitis, DI for Acute Bronchitis, DI for Laryngitis Activity Restrictions/Additional Instructions: Dear Ms. Rivera, Thank you for coming to the emergency department. Today you are being treated for an upper respiratory infection with an oral antibiotic that you will take twice a day for the next 5 days. You have also been prescribed the treatment for a vaginal yeast infection if that develops after completion of your antibiotics as we discussed. At this time it is very important that you rest, increase hydration, drink warm tea or warm fluids with lots of honey to help soothe the throat, apply Aquaphor or Vaseline to the nose to help prevent dryness and cracking, and follow up with your primary care doctor. Please return to the emergency department immediately if you develop chest pain, difficulty breathing, new or worsening symptoms, or any other concerns. Please follow up with your primary care doctor within the next 2-3 days for ER follow-up. (If you do not have a PCP you can call [phone]. ?to schedule an appointment with an [facility] Primary Care Provider) IF YOU DEVELOP ANY NEW OR WORSENING SYMPTOMS, RETURN TO THE ER! Please read the attached instructions, they highlight more specific treatments and interventions for you at home. Thank you for letting me participate in your care, Letha Hernandez PA-C Prescriptions: New amoxicillin-pot clavulanate 875-125 mg tablet 1 tab PO Q12H 5 Days Qty: 10 0RF fluconazole 150 mg tablet 150 mg PO Q3D Qty: 2 0RF Rx Instructions: may repeat second dose 72 hrs after first dose if symptoms persist No Action sodium,potassium,mag sulfates [Suprep Bowel Prep Kit] 17.5-3.13-1.6 gram recon soln See Rx Instructions PO .COMPLEX Qty: 354 0RF Rx Instructions: Take as directed by provider ondansetron 4 mg tablet,disintegrating 4 mg PO Q8H PRN (Reason: nausea and vomiting) Qty: 30 0RF Referrals: ProviderGayatri [Primary Care Provider, Family Practice] Stand Alone Forms: Patient Portal/API, Work Release Note ED Sign-out <Amina Gilliland, - Last Filed: 02/14/25 08:14> Cosign ED Attending Bo Attestation: I was available for consultation.
--- NOTE | 2025-02-12 14:35 | DI.RAD.S_ITS ---
PROCEDURE: XR CHEST 2V INDICATIONS: persistent productive cough TECHNIQUE: 2 views of the chest were acquired. COMPARISON: [facility], CR, XR CHEST 1V, 11/03/2024, 17:18. FINDINGS: Surgical changes and devices: Mammoplasty implants are incidentally noted. Lungs and pleura: Lungs are clear. No pleural effusions or pneumothorax. Mediastinum: Mediastinal contours are normal. Heart size is normal. Bones and chest wall: No suspicious bony abnormalities. Soft tissues appear unremarkable. IMPRESSION: Clear lungs, without infiltrates. Dictated by: Steven Fink M.D. on 02/12/2025 at 13:44 Approved by: Steven Fink M.D. on 02/12/2025 at 13:45
[2025-02-12 15:33] LABS: COVID-19 CEPHEID 4-PLEX PCR Negative (Negative); Influenza A - CEPHEID Flu A NEGATIVE (NEGATIVE); Influenza B - CEPHEID Flu B NEGATIVE (NEGATIVE)
[2025-02-12 16:35] VITALS: BP 140/87; PULSE 73; RESP 19; O2SAT 99
== END 2025-02-12 16:20 | disposition home or self-care (01) ==
PROVIDERS: Emergency Provider Physician Assistant
DX: J04.0 Acute laryngitis (principal); J40 Bronchitis, not specified as acute or chronic; J01.90 Acute sinusitis, unspecified
CPT/HCPCS: 71046; 87637; 99281; 99283